=== PATIENT | female | born 1975 | race African-American/Black ===

== ENCOUNTER 2017-05-11 11:11 | Emergency (ER) | payer BC ==
[~2017-05-11] VITALS: Ht 167.6 cm; Wt 72.6 kg
--- NOTE | ~2017-05-11 | EKG ---
[place] [address] [facility] [employer] [place] [address] ELECTROCARDIOGRAM REPORT Name: ANGÉLICA DOAN [facility] [id number] Admission: 05/11/17 Attend Phys: Discharge: 05/11/17 Date of : 79 Report #: [id number] THIS REPORT FOR: //name// [facility]ly [facility] ED Test Date: 2017-05-11 Test Time: 12:21:16 Pat Name: ANGÉLICA DOAN Department: Room: Gender: F [employer]: jil : 1975 Requested By: Jared Joya Order Number: [id number] MD: Daniel White Measurements Intervals [place] Rate: 54 P: 54 KS: 136 QRS: 48 QRSD: 88 T: 26 QT: 427 QTc: 405 Interpretive Statements Sinus rhythm Baseline wander in lead(s) V2 Compared to ECG 08/17/2013 20:02:26 T wave abnormality less prominent Electronically Signed On 05-11-2017 16:04:21 CDT by Daniel White [email or web address] <ELECTRONICALLY SIGNED> By: Daniel White MD, [facility] 05/11/17 1604 1221 1221 Daniel White MD, [facility] /EPI
[~2017-05-11 11:11] MED LIST: ADIPEX-P37.5 M1 PO; AMBIEN 10 MG TA10 MG; AMBIEN 10 MG TA10 MG PO; BACTRIM DS TAB1 EACH PO; CIPRO250 M1 PO; CIPROFLOXACIN500 M1 PO; DESYREL300 MG PO; EFFEXOR XR150 MG; EFFEXOR XR150 MG PO; HCTZ; HYDROCHLOROTHIA25 M1 PO; HYDROCODON-ACE1 EAC5 PO; IBUPROFEN 600600 M1 PO; IBUPROFEN 800800 M1 PO; LISINOPRIL10 MG PO; LORTAB 5 MG/5001 TA1 PO; NAPROXEN DELAY500 M1 PO; NORCO 5-325 TA1 EACH PO; NORFLEX100 MG PO; PRINIVIL; PROZAC40 MG PO; RELAFEN750 MG PO; VALIUM5 MG PO; WELLBUTRIN SR150 MG PO
[2017-05-11 12:04] LABS: ABSOLUTE NEUTROPHILS 9.8 thou/uL (1.4-8.2); BASOPHILS 0.6 % (0.0-2.0); EOSINOPHILS 5.2 % (0.0-3.0); HEMATOCRIT 36.8 % (37.0-47.0); HEMOGLOBIN 12.5 gm/dL (12.0-15.0); MANUAL DIFF NO; MCH 29.3 pg (26.0-34.0); MCV 86.1 fL (80.0-100.0); MONOCYTES 5.2 % (1.0-8.0); PLATELET COUNT 248 thou/uL (150-400); RBC 4.27 mil/uL (4.20-5.00); RDW 13.6 % (10.5-14.5); WBC 14.2 thou/uL (4.0-11.0)
[2017-05-11 12:12] LABS: ANION GAP 6 mmol/L (7-16); BUN 9 mg/dL (7-18); CALCIUM 8.6 mg/dL (8.5-10.1); CHLORIDE 106 mmol/L (98-107); CO2 28 mmol/L (21-32); GLUCOSE 99 mg/dL (74-106); POTASSIUM 3.5 mmol/L (3.5-5.1); SODIUM 140 mmol/L (136-145)
[2017-05-11 12:21] LABS: APTT 27.2 Seconds (24.5-32.8); PROTIME 10.4 Seconds (9.3-11.4)
[2017-05-11 12:22] LABS: ALBUMIN 3.6 g/dL (3.4-5.0); ALKALINE PHOSPHATASE 54 U/L (46-116); MAGNESIUM 1.9 mg/dL (1.8-2.4); NT-PRO BRAIN NAT PEPTIDE 112 pg/mL (<300); SGOT 17 U/L (15-37); SGPT 16 U/L (30-65); TOTAL BILIRUBIN 0.7 mg/dL (<0.1-1.0); TOTAL PROTEIN 6.3 g/dL (6.4-8.2); TROPONIN-I < 0.04 ng/mL (<0.04-0.07)
[2017-05-11 12:38] LABS: CK-MB MASS < 0.5 ng/mL (<0.5-3.6)
[2017-05-11] MEDS ORDERED: TRAMADOL 50 MG50 MG PO (13:27)
[2017-05-11] MEDS ORDERED: PRILOSEC 20 MG20 MG PO (13:27)
== END 2017-05-11 13:45 | disposition home or self-care (01) ==
LOC: ER 11:11
PROVIDERS: Emergency Medicine
DX: K20.9 Esophagitis, unspecified (principal); F10.99 Alcohol use, unspecified with unspecified alcohol-induced disorder; Z90.89 Acquired absence of other organs; Z98.890 Other specified postprocedural states; Z88.0 Allergy status to penicillin

== ENCOUNTER 2017-10-21 19:12 | Emergency (ER) | payer OTHER ==
[~2017-10-21] VITALS: Ht 167.6 cm; Wt 73.9 kg
[~2017-10-21 19:12] MED LIST changes: +FLAGYL500 MG PO; +KEFLEX500 M1 PO; +PRILOSEC 20 MG20 MG PO; +TRAMADOL 50 MG50 MG PO
[2017-10-21 19:57] LABS: URINE BILIRUBIN NEGATIVE (Negative); URINE BLOOD NEGATIVE (Negative); URINE COLOR YELLOW; URINE GLUCOSE-RANDOM* NEGATIVE (Negative); URINE KETONES NEGATIVE (Negative); URINE LEUKOCYTES-REFLEX NEGATIVE (Negative); URINE PROTEIN (DIPSTICK) TRACE (Negative); URINE SPECIFIC GRAVITY >= 1.030 (1.003-1.035); URINE UROBILINOGEN 0.2 E.U./dl (0.2-1.0)
[2017-10-21 20:26] LABS: ABSOLUTE NEUTROPHILS 3.8 thou/uL (1.4-8.2); BASOPHILS 1.4 % (0.0-2.0); EOSINOPHILS 4.2 % (0.0-3.0); HEMATOCRIT 39.6 % (37.0-47.0); HEMOGLOBIN 13.3 gm/dL (12.0-15.0); MCHC 33.6 g/dL (28.0-37.0); MCV 86.3 fL (80.0-100.0); MONOCYTES 7.1 % (1.0-8.0); PLATELET COUNT 334 thou/uL (150-400); POLYS 48.3 % (36.0-66.0); RBC 4.59 mil/uL (4.20-5.00); RDW 12.7 % (10.5-14.5); WBC 7.9 thou/uL (4.0-11.0)
[2017-10-21 20:27] LABS: MANUAL DIFF NO
[2017-10-21 20:33] LABS: CALCIUM 8.8 mg/dL (8.5-10.1); POTASSIUM 3.7 mmol/L (3.5-5.1)
[2017-10-21] MEDS ORDERED: NAPROSYN500 MG PO (21:28)
== END 2017-10-21 21:54 | disposition home or self-care (01) ==
LOC: ER 19:12
PROVIDERS: Emergency Medicine
DX: R10.9 Unspecified abdominal pain (principal); Z90.89 Acquired absence of other organs; Z98.890 Other specified postprocedural states; Z88.0 Allergy status to penicillin